=== PATIENT | male | born 1980 | race African-American/Black ===

== ENCOUNTER 2019-04-02 11:22 | Inpatient (IN) | payer OTHER | END 2019-04-06 13:28 | disposition other institution (70) | LOC: YASAS 11:22 → Y6N 19:05 ==

== ENCOUNTER 2019-04-06 13:37 | Inpatient (IN) | payer OTHER ==
[2019-04-06] MEDS ORDERED: MAGNESIUM CITRATE 300 ML BOTTLE PO PRN (15:29)
[2019-04-06] MEDS ORDERED: P-EPHED 60MG/TRIPROLIDI 2.5MG TABLET PO PRN (15:29)
[2019-04-06] MEDS ORDERED: LOPERAMIDE HCL 2 MG CAPSULE PO PRN (15:29)
[2019-04-06] MEDS ORDERED: guaiFENesin 200 MG/10 ML 10 ML UNIT-DOSE CUPS PO PRN (15:29)
[2019-04-06] MEDS ORDERED: MAGNESIUM HYDROX 2400MG/30ML ORAL SUSPENSION 30 ML CUP PO PRN (15:29)
[2019-04-06] MEDS ORDERED: MENTHOL/PHENOL 1 EACH UD MM PRN (15:29)
[2019-04-06] MEDS ORDERED: IBUPROFEN 400 MG TABLET (FP) PO PRN (15:29)
[2019-04-06] MEDS ORDERED: MAG HYDROX/AL HYDROX/SIMETH 30 ML UNIT-DOSE CUP PO PRN (15:29)
[2019-04-06] MEDS ORDERED: NICOTINE POLACRILEX 4 MG GUM BUC PRN (15:29)
[2019-04-06] MEDS ORDERED: hydrOXYzine PAMOATE 50 MG CAPSULE (FP) PO PRN (15:29)
--- NOTE | 2019-04-06 15:29 | HP ---
[facility] Rehab Assess/Revision - Admission History Admitted to Rehab from: [address] - Vital signs Vital Signs: Vital Signs Period Temp Pulse Resp BP Sys/Hancock Pulse Ox Last 24 Hr 98.3 F 83 18 120/68 - Findings Detox History & Physical reviewed: Yes Concur with findings: Yes Inpatient Rehab Admission - Rehab Decision to Admit Inpatient rehab admission?: Yes - Initial Determination Are CD services needed?: Yes Free of communicable disease: Yes Not in need of hospitalization: Yes - Rehab Admission Criteria Previous failed treatment: Yes Poor recovery environment: Yes Comorbidities: Yes Lacks judgement: Yes Patient is meeting Inpatient Rehab admission criteria:: Yes
[2019-04-06] MEDS: QUEtiapine FUMARATE 50 MG TABLET PO SCH (21:16)
[2019-04-06] MEDS: THIAMINE HCL 100 MG TABLET (FP) PO SCH (21:16)
[2019-04-06] MEDS ORDERED: MELATONIN 5 MG TABLETS PO PRN (22:00)
[2019-04-07] MEDS: PRENATAL VITAMINS W/ FOLIC ACID TABLET (FP) PO SCH (09:56)
[2019-04-07] MEDS: LISINOPRIL 5 MG TABLET (FP) PO SCH (09:56)
[2019-04-07] MEDS: PANTOPRAZOLE 40 MG TABLET (FP) PO SCH (09:56)
[2019-04-07] MEDS: ACETAMINOPHEN 325 MG TABLET (FP) PO PRN (09:57)
[2019-04-07] MEDS: NICOTINE 21 MG/24 HOURS TOPICAL PATCH TD SCH (09:58)
[2019-04-07] MEDS: THIAMINE HCL 100 MG TABLET (FP) PO SCH (21:33)
[2019-04-07] MEDS: QUEtiapine FUMARATE 50 MG TABLET PO SCH (21:33)
[2019-04-08] MEDS: LISINOPRIL 5 MG TABLET (FP) PO SCH (09:58)
[2019-04-08] MEDS: ACETAMINOPHEN 325 MG TABLET (FP) PO PRN (09:58)
[2019-04-08] MEDS: NICOTINE 21 MG/24 HOURS TOPICAL PATCH TD SCH (09:58)
[2019-04-08] MEDS: PANTOPRAZOLE 40 MG TABLET (FP) PO SCH (09:58)
[2019-04-08] MEDS: PRENATAL VITAMINS W/ FOLIC ACID TABLET (FP) PO SCH (09:58)
[2019-04-08] MEDS: QUEtiapine FUMARATE 50 MG TABLET PO SCH (21:34)
[2019-04-08] MEDS: THIAMINE HCL 100 MG TABLET (FP) PO SCH (21:34)
[2019-04-09] MEDS: LISINOPRIL 5 MG TABLET (FP) PO SCH (10:25)
[2019-04-09] MEDS: PANTOPRAZOLE 40 MG TABLET (FP) PO SCH (10:25)
[2019-04-09] MEDS: PRENATAL VITAMINS W/ FOLIC ACID TABLET (FP) PO SCH (10:25)
[2019-04-09] MEDS: NICOTINE 21 MG/24 HOURS TOPICAL PATCH TD SCH (10:26)
[2019-04-09] MEDS: THIAMINE HCL 100 MG TABLET (FP) PO SCH (21:58)
[2019-04-09] MEDS: QUEtiapine FUMARATE 50 MG TABLET PO SCH (21:58)
[2019-04-10] MEDS: LISINOPRIL 5 MG TABLET (FP) PO SCH (09:55)
[2019-04-10] MEDS: PANTOPRAZOLE 40 MG TABLET (FP) PO SCH (09:55)
[2019-04-10] MEDS: PRENATAL VITAMINS W/ FOLIC ACID TABLET (FP) PO SCH (09:55)
[2019-04-10] MEDS: NICOTINE 21 MG/24 HOURS TOPICAL PATCH TD SCH (09:56)
[2019-04-10 12:36] VITALS: BP 114/64; PULSE 80; TEMP 97.8
--- NOTE | 2019-04-10 23:47 | PN ---
[facility] Progress Note Note: Patient was admitted to rehab post detox from opioids and anxiolytics. Patient w/ co-occurring cocaine use disorder. Patient states must leave, despite reviewe of benefits and encouragement to remain. Vital Signs - 24 hr 04/10/19 04/10/19 04/10/19 03:30 06:47 12:35 Temperature 98.3 F 97.8 F Pulse Rate 73 80 Respiratory 18 18 18 Rate Blood Pressure 91/62 114/64 Laboratory Last Values HIV 1&2 Antibody Screen Negative 04/07/19 07:00 HIV P24 Antigen Negative 04/07/19 07:00 Labs reviewed. Loss of tolerance and overdose risks discussed. Reviewed the benefits of having a Narcan Kit at home but patient refuses prescription. Patient states will rejoin support network "Ready[employer] Willing, [employer]ble' in a.m. Patient left AMA.
== END 2019-04-10 17:30 | disposition left against medical advice (07) | DRG 770 ==
LOC: YASAS 13:37 → Y3W 13:38
PROVIDERS: ADMIT Neuromusculoskeletal Medicine & OMM; ATTEND Neuromusculoskeletal Medicine & OMM
PROC: HZ42ZZZ Group Counseling for Substance Abuse Treatment, Cognitive-Behavioral (ICD-10-PCS; principal; 2019-04-06)
DX: F11.20 Opioid dependence, uncomplicated (principal); F14.20 Cocaine dependence, uncomplicated; F13.90 Sedative, hypnotic, or anxiolytic use, unspecified, uncomplicated; F17.210 Nicotine dependence, cigarettes, uncomplicated; I10 Essential (primary) hypertension; G47.00 Insomnia, unspecified; K21.9 Gastro-esophageal reflux disease without esophagitis; Z59.0 Homelessness
CPT/HCPCS: 36415; 87389

== ENCOUNTER 2022-02-24 11:01 | Inpatient (IN) | payer OTHER ==
[2022-02-24] MEDS ORDERED: methaDONE HCL 10 MG TABLET (FOR DETOX USE ONLY) PO ONE ×2 (11:53→23:00)
[2022-02-24] MEDS ORDERED: cloNIDine HCL 0.1 MG TABLET PO PRN (11:53)
[2022-02-24] MEDS ORDERED: BENZOCAINE/MENTHOL (CHLORASEPTIC ) LOZENGE MM PRN (11:53)
[2022-02-24] MEDS ORDERED: NICOTINE 10 MG CARTRIDGE (INHALER) IH PRN (11:53)
[2022-02-24] MEDS ORDERED: ACETAMINOPHEN 325 MG TABLET (FP) PO PRN ×2 (11:53)
[2022-02-24] MEDS ORDERED: DICYCLOMINE HCL 10 MG CAPSULE PO PRN (11:53)
[2022-02-24] MEDS ORDERED: IBUPROFEN 400 MG TABLET (FP) PO PRN (11:53)
[2022-02-24] MEDS ORDERED: MAGNESIUM HYDROX 2400MG/30ML ORAL SUSPENSION 30 ML CUP PO PRN (11:53)
[2022-02-24] MEDS ORDERED: MAG HYDROX/AL HYDROX/SIMETH 30 ML UNIT-DOSE CUP PO PRN (11:53)
[2022-02-24] MEDS ORDERED: MAGNESIUM CITRATE 300 ML BOTTLE PO PRN (11:53)
[2022-02-24] MEDS ORDERED: BISMUTH SUBSALICYLATE 262 MG/15 ML BTL PO PRN (11:53)
[2022-02-24] MEDS ORDERED: LOPERAMIDE HCL 2 MG CAPSULE PO PRN (11:53)
[2022-02-24] MEDS ORDERED: ONDANSETRON *ODT* 4 MG TABLET SL PRN (11:53)
[2022-02-24 12:41] VITALS: BMI 30.2
[2022-02-24] MEDS: hydrOXYzine PAMOATE 25 MG CAPSULE (FP) PO SCH ×3 (13:13→22:49)
[2022-02-24] MEDS: PRENATAL VITAMINS W/ FOLIC ACID TABLET (FP) PO SCH (13:13)
[2022-02-24] MEDS: NICOTINE 7 MG/24 HOURS TOPICAL PATCH TD SCH (13:13)
[2022-02-24] MEDS: VITAMINS A AND D TOPICAL OINTMENT 60 GM TUBE TP SCH ×3 (13:13→23:02)
[2022-02-24 15:54] LABS: HEMATOCRIT 37.9 % (35.4-49); HEMOGLOBIN 12.7 GM/dL (11.7-16.9); MCH 28.1 pg (25.7-33.7); MCHC 33.4 g/dl (32.0-35.9); MEAN CELL VOLUME 84.1 fl (80-96); MEAN PLT VOLUME 10.5 fl (7.5-11.1); PLATELET COUNT 146 10^3/uL (134-434); RDW 14.3 % (11.9-15.9); WHITE BLOOD COUNT 4.9 K/mm3 (4.0-10.0)
[2022-02-24 16:38] LABS: CALCIUM 8.9 mg/dL (8.5-10.1)
[2022-02-24 16:39] LABS: ALBUMIN 3.8 g/dl (3.4-5.0); BLOOD UREA NITROGEN 11.7 mg/dL (7-18)
[2022-02-24 16:42] LABS: CREATININE 0.9 mg/dL (0.55-1.3)
[2022-02-24 16:43] LABS: TOT PROT 6.6 g/dl (6.4-8.2)
[2022-02-24 16:44] LABS: BILIRUBIN,TOTAL 0.3 mg/dL (0.2-1)
[2022-02-24] MEDS: METHOCARBAMOL 500 MG TABLET PO PRN (17:39)
[2022-02-24] MEDS: THIAMINE HCL 100 MG TABLET (FP) PO SCH (22:45)
[2022-02-24] MEDS: BACITRACIN 0.9 GM PACKET TP SCH (22:45)
[2022-02-24] MEDS: MELATONIN 5 MG TABLETS PO SCH (22:49)
[2022-02-25] MEDS: hydrOXYzine PAMOATE 25 MG CAPSULE (FP) PO SCH ×5 (05:10→22:02)
[2022-02-25] MEDS: VITAMINS A AND D TOPICAL OINTMENT 60 GM TUBE TP SCH ×4 (05:11→23:03)
[2022-02-25] MEDS ORDERED: methaDONE HCL 10 MG TABLET (FOR DETOX USE ONLY) ONE (09:11)
[2022-02-25] MEDS: NICOTINE 7 MG/24 HOURS TOPICAL PATCH TD SCH (10:41)
[2022-02-25] MEDS: BACITRACIN 0.9 GM PACKET TP SCH ×2 (10:41→22:00)
[2022-02-25] MEDS: METHOCARBAMOL 500 MG TABLET PO PRN (10:41)
[2022-02-25] MEDS: PRENATAL VITAMINS W/ FOLIC ACID TABLET (FP) PO SCH (10:41)
[2022-02-25] MEDS: THIAMINE HCL 100 MG TABLET (FP) PO SCH (22:00)
[2022-02-25] MEDS: traZODone HCL 100 MG TABLET (FP) PO SCH (22:00)
[2022-02-25] MEDS: MELATONIN 5 MG TABLETS PO SCH (22:01)
[2022-02-26] MEDS: hydrOXYzine PAMOATE 25 MG CAPSULE (FP) PO SCH ×6 (05:44→22:34)
[2022-02-26] MEDS: VITAMINS A AND D TOPICAL OINTMENT 60 GM TUBE TP SCH ×4 (05:44→23:32)
[2022-02-26] MEDS ORDERED: methaDONE HCL 10 MG TABLET (FOR DETOX USE ONLY) PO ONE (10:00)
[2022-02-26] MEDS: PRENATAL VITAMINS W/ FOLIC ACID TABLET (FP) PO SCH (10:32)
[2022-02-26] MEDS: METHOCARBAMOL 500 MG TABLET PO PRN (10:32)
[2022-02-26] MEDS: BACITRACIN 0.9 GM PACKET TP SCH ×2 (10:32→22:33)
[2022-02-26] MEDS: NICOTINE 7 MG/24 HOURS TOPICAL PATCH TD SCH (10:33)
[2022-02-26 16:10] LABS: SARS-CoV-2 NAA Not Detected (Not Detected)
[2022-02-26] MEDS: traZODone HCL 100 MG TABLET (FP) PO SCH (22:33)
[2022-02-26] MEDS: THIAMINE HCL 100 MG TABLET (FP) PO SCH (22:33)
[2022-02-26] MEDS: MELATONIN 5 MG TABLETS PO SCH (22:33)
[2022-02-27] MEDS: VITAMINS A AND D TOPICAL OINTMENT 60 GM TUBE TP SCH ×3 (07:20→19:58)
[2022-02-27] MEDS: hydrOXYzine PAMOATE 25 MG CAPSULE (FP) PO SCH ×5 (07:20→22:53)
[2022-02-27] MEDS ORDERED: methaDONE HCL 10 MG TABLET (FOR DETOX USE ONLY) ONE (09:32)
[2022-02-27] MEDS: PRENATAL VITAMINS W/ FOLIC ACID TABLET (FP) PO SCH (10:22)
[2022-02-27] MEDS: BACITRACIN 0.9 GM PACKET TP SCH ×2 (10:22→22:54)
[2022-02-27] MEDS: METHOCARBAMOL 500 MG TABLET PO PRN (10:22)
[2022-02-27] MEDS: NICOTINE 7 MG/24 HOURS TOPICAL PATCH TD SCH (10:23)
[2022-02-27] MEDS: MELATONIN 5 MG TABLETS PO SCH (22:53)
[2022-02-27] MEDS: THIAMINE HCL 100 MG TABLET (FP) PO SCH (22:53)
[2022-02-27] MEDS: traZODone HCL 100 MG TABLET (FP) PO SCH (22:53)
[2022-02-28] MEDS: VITAMINS A AND D TOPICAL OINTMENT 60 GM TUBE TP SCH ×4 (00:40→23:52)
[2022-02-28] MEDS: hydrOXYzine PAMOATE 25 MG CAPSULE (FP) PO SCH ×5 (05:41→22:10)
[2022-02-28] MEDS ORDERED: methaDONE HCL 10 MG TABLET (FOR DETOX USE ONLY) PO ONE (10:00)
[2022-02-28] MEDS: BACITRACIN 0.9 GM PACKET TP SCH ×2 (10:43→22:10)
[2022-02-28] MEDS: NICOTINE 7 MG/24 HOURS TOPICAL PATCH TD SCH (10:43)
[2022-02-28] MEDS: PRENATAL VITAMINS W/ FOLIC ACID TABLET (FP) PO SCH (10:43)
[2022-02-28] MEDS: traZODone HCL 100 MG TABLET (FP) PO SCH (22:10)
[2022-02-28] MEDS: THIAMINE HCL 100 MG TABLET (FP) PO SCH (22:10)
[2022-02-28] MEDS: MELATONIN 5 MG TABLETS PO SCH (22:11)
[2022-03-01] MEDS: VITAMINS A AND D TOPICAL OINTMENT 60 GM TUBE TP SCH ×2 (00:30→06:12)
[2022-03-01] MEDS: hydrOXYzine PAMOATE 25 MG CAPSULE (FP) PO SCH ×2 (06:12→09:06)
[2022-03-01] MEDS: PRENATAL VITAMINS W/ FOLIC ACID TABLET (FP) PO SCH (09:05)
[2022-03-01] MEDS: BACITRACIN 0.9 GM PACKET TP SCH (09:05)
[2022-03-01] MEDS: NICOTINE 7 MG/24 HOURS TOPICAL PATCH TD SCH (09:06)
[2022-03-01 09:24] VITALS: BP 126/88; PULSE 79; TEMP 97.3
== END 2022-03-01 09:21 | disposition home or self-care (01) | DRG 773 ==
LOC: YASAS 11:01 → Y6N 12:10
PROVIDERS: ADMIT Allergy & Immunology; ATTEND Surgery
PROC: HZ2ZZZZ Detoxification Services for Substance Abuse Treatment (ICD-10-PCS; principal; 2022-02-24)
DX: F11.23 Opioid dependence with withdrawal (principal); F14.20 Cocaine dependence, uncomplicated; F13.10 Sedative, hypnotic or anxiolytic abuse, uncomplicated; F17.213 Nicotine dependence, cigarettes, with withdrawal; F19.282 Other psychoactive substance dependence with psychoactive substance-induced sleep disorder; F90.9 Attention-deficit hyperactivity disorder, unspecified type; G47.00 Insomnia, unspecified; I10 Essential (primary) hypertension; Z59.01 Sheltered homelessness
CPT/HCPCS: 36415; 80053; 85027; 86780; 87811; 93005; 93010; C9803-CS; J0735; U0003; U0005

== ENCOUNTER 2022-10-30 08:45 | Inpatient (IN) | payer OTHER ==
[2022-10-30 09:37] VITALS: BMI 31.7
[2022-10-30] MEDS ORDERED: MAGNESIUM HYDROX 2400MG/30ML ORAL SUSPENSION 30 ML CUP PO PRN (09:54)
[2022-10-30] MEDS ORDERED: hydrOXYzine PAMOATE 25 MG CAPSULE (FP) PO PRN (09:54)
[2022-10-30] MEDS ORDERED: BENZOCAINE/MENTHOL (CHLORASEPTIC ) LOZENGE MM PRN (09:54)
[2022-10-30] MEDS ORDERED: NALOXONE HCL (KLOXXADO) 8 MG SPRAY NS PRN (09:54)
[2022-10-30] MEDS ORDERED: NICOTINE 10 MG CARTRIDGE (INHALER) IH PRN (09:54)
[2022-10-30] MEDS ORDERED: MAG HYDROX/AL HYDROX/SIMETH 30 ML UNIT-DOSE CUP PO PRN (09:54)
[2022-10-30] MEDS ORDERED: POLYETHYLENE GLYCOL (HEALTHYLAX) 3350 17 GM PACKET PO PRN (09:54)
[2022-10-30] MEDS ORDERED: IBUPROFEN 400 MG TABLET (FP) PO PRN (09:54)
[2022-10-30] MEDS ORDERED: ONDANSETRON *ODT* 4 MG TABLET SL PRN (09:54)
[2022-10-30] MEDS ORDERED: chlordiazePOXIDE HCL 25 MG CAPSULE PO PRN (09:54)
[2022-10-30] MEDS ORDERED: cloNIDine HCL 0.1 MG TABLET PO PRN (09:54)
[2022-10-30] MEDS ORDERED: DICYCLOMINE HCL 10 MG CAPSULE PO PRN (09:54)
[2022-10-30] MEDS ORDERED: ACETAMINOPHEN 325 MG TABLET (FP) PO PRN ×2 (09:54)
[2022-10-30] MEDS ORDERED: LOPERAMIDE HCL 2 MG CAPSULE PO PRN (09:54)
[2022-10-30] MEDS ORDERED: BISMUTH SUBSALICYLATE 524 MG/30 ML PO PRN (09:54)
[2022-10-30] MEDS ORDERED: IBUPROFEN 600 MG TABLET (FP) PO PRN (09:54)
[2022-10-30] MEDS ORDERED: methaDONE HCL 10 MG TABLET (FOR DETOX USE ONLY) PO ONE (10:15)
[2022-10-30] MEDS ORDERED: chlordiazePOXIDE HCL 25 MG CAPSULE PO ONE (10:30)
[2022-10-30] MEDS: PRENATAL VITAMINS W/ FOLIC ACID TABLET (FP) PO SCH (10:58)
[2022-10-30] MEDS: NICOTINE 7 MG/24 HOURS TOPICAL PATCH TD SCH (11:03)
[2022-10-30] MEDS: chlordiazePOXIDE HCL 25 MG CAPSULE PO SCH ×2 (17:24→22:17)
[2022-10-30] MEDS: THIAMINE HCL 100 MG TABLET (FP) PO SCH (22:16)
[2022-10-30] MEDS: MELATONIN 5 MG TABLETS PO SCH (22:16)
[2022-10-30] MEDS: METHOCARBAMOL 500 MG TABLET PO PRN (22:16)
[2022-10-31] MEDS: chlordiazePOXIDE HCL 25 MG CAPSULE PO SCH ×4 (05:58→22:00)
[2022-10-31] MEDS: PRENATAL VITAMINS W/ FOLIC ACID TABLET (FP) PO SCH (10:20)
[2022-10-31] MEDS: NICOTINE 7 MG/24 HOURS TOPICAL PATCH TD SCH (10:21)
[2022-10-31] MEDS: THIAMINE HCL 100 MG TABLET (FP) PO SCH (21:48)
[2022-10-31] MEDS: METHOCARBAMOL 500 MG TABLET PO PRN (21:48)
[2022-10-31] MEDS: MELATONIN 5 MG TABLETS PO SCH (21:49)
[2022-11-01] MEDS: chlordiazePOXIDE HCL 25 MG CAPSULE PO SCH ×4 (05:40→22:04)
[2022-11-01] MEDS ORDERED: methaDONE HCL 10 MG TABLET (FOR DETOX USE ONLY) PO ONE (10:00)
[2022-11-01] MEDS: NICOTINE 7 MG/24 HOURS TOPICAL PATCH TD SCH (10:03)
[2022-11-01] MEDS: PRENATAL VITAMINS W/ FOLIC ACID TABLET (FP) PO SCH (10:03)
[2022-11-01] MEDS: MELATONIN 5 MG TABLETS PO SCH (22:05)
[2022-11-01] MEDS: THIAMINE HCL 100 MG TABLET (FP) PO SCH (22:05)
[2022-11-01] MEDS: METHOCARBAMOL 500 MG TABLET PO PRN (22:06)
[2022-11-02] MEDS ORDERED: chlordiazePOXIDE HCL 10 MG CAPSULE PO PRN
[2022-11-02] MEDS: chlordiazePOXIDE HCL 10 MG CAPSULE PO SCH ×2 (05:43→10:12)
[2022-11-02 09:30] VITALS: RESP 18
[2022-11-02] MEDS: PRENATAL VITAMINS W/ FOLIC ACID TABLET (FP) PO SCH (10:12)
[2022-11-02] MEDS: NICOTINE 7 MG/24 HOURS TOPICAL PATCH TD SCH (10:14)
[2022-11-02 13:14] VITALS: BP 113/75; PULSE 75; TEMP 97.3
[2022-11-02 15:57] LABS: CALCIUM 8.8 mg/dL (8.5-10.1)
[2022-11-02 15:58] LABS: ALBUMIN 2.8 g/dl (3.4-5.0); BLOOD UREA NITROGEN 19.4 mg/dL (7-18)
[2022-11-02 16:01] LABS: CREATININE 0.9 mg/dL (0.55-1.3)
[2022-11-02 16:04] LABS: BILIRUBIN,TOTAL 0.4 mg/dL (0.2-1); TOT PROT 5.9 g/dl (6.4-8.2)
[2022-11-02 16:10] LABS: HEMATOCRIT 36.8 % (35.4-49); HEMOGLOBIN 12.1 GM/dL (11.7-16.9); MCH 27.4 pg (25.7-33.7); MCHC 32.8 g/dl (32.0-35.9); MEAN CELL VOLUME 83.5 fl (80-96); PLATELET COUNT 143 10^3/uL (134-434); RBC 4.41 M/mm3 (4.00-5.60)
[2022-11-03] MEDS ORDERED: chlordiazePOXIDE HCL 10 MG CAPSULE PO SCH (05:00)
[2022-11-03] MEDS ORDERED: methaDONE HCL 10 MG TABLET (FOR DETOX USE ONLY) PO ONE (10:00)
[2022-11-04] MEDS ORDERED: chlordiazePOXIDE HCL 10 MG CAPSULE PO ONE (05:00)
== END 2022-11-02 14:24 | disposition left against medical advice (07) | DRG 770 ==
LOC: YASAS 08:45 → Y3N 10:11
PROVIDERS: ADMIT Allergy & Immunology; ATTEND Family Medicine
PROC: HZ2ZZZZ Detoxification Services for Substance Abuse Treatment (ICD-10-PCS; principal; 2022-10-30)
DX: F11.23 Opioid dependence with withdrawal (principal); F10.230 Alcohol dependence with withdrawal, uncomplicated; F14.20 Cocaine dependence, uncomplicated; F12.20 Cannabis dependence, uncomplicated; F17.213 Nicotine dependence, cigarettes, with withdrawal; F41.9 Anxiety disorder, unspecified; F90.9 Attention-deficit hyperactivity disorder, unspecified type; I10 Essential (primary) hypertension; K21.9 Gastro-esophageal reflux disease without esophagitis; Z59.02 Unsheltered homelessness
CPT/HCPCS: 36415; 80053; 82140; 85027; 86780; C9803-CS; U0003; U0005

== ENCOUNTER 2023-09-20 09:38 | Inpatient (IN) | payer OTHER ==
[2023-09-20 10:05] VITALS: BMI 35.1
[2023-09-20] MEDS ORDERED: DICYCLOMINE HCL 10 MG CAPSULE PO PRN (14:09)
[2023-09-20] MEDS ORDERED: BENZOCAINE/MENTHOL (CHLORASEPTIC ) LOZENGE MM PRN (14:09)
[2023-09-20] MEDS ORDERED: MAGNESIUM HYDROX 2400MG/30ML ORAL SUSPENSION 30 ML CUP PO PRN (14:09)
[2023-09-20] MEDS ORDERED: NALOXONE HCL (KLOXXADO) 8 MG SPRAY NS PRN (14:09)
[2023-09-20] MEDS ORDERED: NALOXONE HCL 0.4 MG/ML VIAL IM PRN (14:09)
[2023-09-20] MEDS ORDERED: LOPERAMIDE HCL 2 MG CAPSULE PO PRN (14:09)
[2023-09-20] MEDS ORDERED: BISMUTH SUBSALICYLATE 524 MG/30 ML PO PRN (14:09)
[2023-09-20] MEDS ORDERED: MAG HYDROX/AL HYDROX/SIMETH 30 ML UNIT-DOSE CUP PO PRN (14:09)
[2023-09-20] MEDS ORDERED: ONDANSETRON *ODT* 4 MG TABLET SL PRN (14:09)
[2023-09-20] MEDS ORDERED: POLYETHYLENE GLYCOL (HEALTHYLAX) 3350 17 GM PACKET PO PRN (14:09)
[2023-09-20] MEDS ORDERED: IBUPROFEN 400 MG TABLET (FP) PO PRN (14:09)
[2023-09-20] MEDS ORDERED: ACETAMINOPHEN 325 MG TABLET (FP) PO PRN (14:09)
[2023-09-20] MEDS ORDERED: BENZONATATE 200 MG CAPSULE PO PRN (14:09)
[2023-09-20] MEDS ORDERED: guaiFENesin 600 MG TABLET.ER (FP) PO PRN (14:09)
[2023-09-20] MEDS ORDERED: IBUPROFEN 600 MG TABLET (FP) PO PRN (14:09)
[2023-09-20] MEDS ORDERED: NICOTINE POLACRILEX 2 MG GUM BUC PRN (14:16)
[2023-09-20] MEDS: hydrOXYzine PAMOATE 25 MG CAPSULE (FP) PO PRN (22:19)
[2023-09-20] MEDS: METHOCARBAMOL 500 MG TABLET PO PRN (22:19)
[2023-09-20] MEDS: MELATONIN 5 MG TABLETS PO SCH (22:19)
[2023-09-20] MEDS: THIAMINE HCL 100 MG TABLET (FP) PO SCH (22:19)
[2023-09-20] MEDS: MUPIROCIN 2% TOPICAL OINTMENT 22 GM TUBE TP SCH (22:20)
[2023-09-21 10:32] LABS: HEMATOCRIT 39.4 % (35.4-49); HEMOGLOBIN 13.4 GM/dL (11.7-16.9); MCH 27.7 pg (25.7-33.7); MEAN CELL VOLUME 81.6 fl (80-96); PLATELET COUNT 177 10^3/uL (134-434); RBC 4.83 M/mm3 (4.00-5.60); RDW 14.8 % (11.9-15.9); WHITE BLOOD COUNT 3.1 K/mm3 (4.0-10.0)
[2023-09-21] MEDS: PRENATAL VITAMINS W/ FOLIC ACID TABLET (FP) PO SCH (10:42)
[2023-09-21] MEDS: NICOTINE 14 MG/24 HOURS TOPICAL PATCH TD SCH (10:43)
[2023-09-21] MEDS ORDERED: chlordiazePOXIDE HCL 25 MG CAPSULE PO PRN (10:44)
[2023-09-21] MEDS: chlordiazePOXIDE HCL 25 MG CAPSULE PO ONE (12:53)
[2023-09-21] MEDS: chlordiazePOXIDE HCL 25 MG CAPSULE PO SCH (12:57)
[2023-09-21 13:06] LABS: CHLORIDE 107 mmol/L (98-107); SODIUM 142 mmol/L (136-145)
[2023-09-21 13:08] LABS: ALBUMIN 2.9 g/dl (3.4-5.0); ANION GAP 5 mmol/L (4-13); BLOOD UREA NITROGEN 14.8 mg/dL (7-18); CALCIUM 8.4 mg/dL (8.5-10.1); CO2 30 mmol/L (21-32); GLUCOSE,RANDOM 98 mg/dL (74-106)
[2023-09-21 13:11] LABS: CREATININE 0.8 mg/dL (0.55-1.3); SGOT/AST 41 U/L (15-37); SGPT/ALT 61 U/L (13-61)
[2023-09-21 13:13] LABS: BILIRUBIN,TOTAL 0.3 mg/dL (0.2-1); TOT PROT 5.8 g/dl (6.4-8.2)
[2023-09-21 13:14] LABS: ALK PHOS 54 U/L (45-117)
[2023-09-21 13:16] LABS: HIV INTERPRETATION NEGATIVE (NEGATIVE)
[2023-09-21] MEDS: FLU VACCINE (FLULAVAL) PF 60 MCG/0.5 ML SYRINGE 2023-2024 IM ONE (14:55)
[2023-09-21] MEDS: traZODone HCL 100 MG TABLET (FP) PO SCH (22:53)
[2023-09-23] MEDS: chlordiazePOXIDE HCL 25 MG CAPSULE PO SCH (05:55)
[2023-09-24] MEDS ORDERED: chlordiazePOXIDE HCL 10 MG CAPSULE PO PRN
[2023-09-24] MEDS: chlordiazePOXIDE HCL 10 MG CAPSULE PO SCH (06:00)
[2023-09-25] MEDS: chlordiazePOXIDE HCL 10 MG CAPSULE PO SCH (05:50)
[2023-09-26] MEDS: chlordiazePOXIDE HCL 10 MG CAPSULE PO ONE (05:50)
[2023-09-26 09:06] VITALS: BP 102/60; PULSE 74; RESP 18; TEMP 97.7
== END 2023-09-26 11:52 | disposition home or self-care (01) | DRG 773 ==
LOC: YASAS 09:38 → Y3N 15:02
PROVIDERS: ADMIT Allergy & Immunology; ATTEND Surgery
PROC: HZ2ZZZZ Detoxification Services for Substance Abuse Treatment (ICD-10-PCS; principal; 2023-09-20)
DX: F10.230 Alcohol dependence with withdrawal, uncomplicated (principal); F11.20 Opioid dependence, uncomplicated; F13.230 Sedative, hypnotic or anxiolytic dependence with withdrawal, uncomplicated; F14.20 Cocaine dependence, uncomplicated; F17.210 Nicotine dependence, cigarettes, uncomplicated; F41.9 Anxiety disorder, unspecified; F90.9 Attention-deficit hyperactivity disorder, unspecified type; F19.982 Other psychoactive substance use, unspecified with psychoactive substance-induced sleep disorder; I10 Essential (primary) hypertension; K21.9 Gastro-esophageal reflux disease without esophagitis; G47.00 Insomnia, unspecified; E66.9 Obesity, unspecified; Z68.35 Body mass index [BMI] 35.0-35.9, adult; Z20.822 Contact with and (suspected) exposure to COVID-19; Z56.0 Unemployment, unspecified; Z59.00 Homelessness unspecified
CPT/HCPCS: 36415; 80053; 80307; 85027; 86780; 87389; 87635; 87811; 90686; 93005; 93010; G0008

== ENCOUNTER 2023-11-18 15:39 | Inpatient (IN) | payer OTHER ==
[2023-11-18 17:10] VITALS: BMI 31.7
[2023-11-18] MEDS ORDERED: BENZONATATE 200 MG CAPSULE PO PRN (20:37)
[2023-11-18] MEDS ORDERED: IBUPROFEN 600 MG TABLET (FP) PO PRN (20:37)
[2023-11-18] MEDS ORDERED: MAG HYDROX/AL HYDROX/SIMETH 30 ML UNIT-DOSE CUP PO PRN (20:37)
[2023-11-18] MEDS ORDERED: ONDANSETRON *ODT* 4 MG TABLET SL PRN (20:37)
[2023-11-18] MEDS ORDERED: ACETAMINOPHEN 325 MG TABLET (FP) PO PRN (20:37)
[2023-11-18] MEDS ORDERED: guaiFENesin 600 MG TABLET.ER (FP) PO PRN (20:37)
[2023-11-18] MEDS ORDERED: BENZOCAINE/MENTHOL (CHLORASEPTIC ) LOZENGE MM PRN (20:37)
[2023-11-18] MEDS ORDERED: LOPERAMIDE HCL 2 MG CAPSULE PO PRN (20:37)
[2023-11-18] MEDS ORDERED: DICYCLOMINE HCL 10 MG CAPSULE PO PRN (20:37)
[2023-11-18] MEDS ORDERED: NICOTINE POLACRILEX 2 MG LOZENGE BC PRN (20:37)
[2023-11-18] MEDS ORDERED: NALOXONE HCL (KLOXXADO) 8 MG SPRAY NS PRN (20:37)
[2023-11-18] MEDS ORDERED: MAGNESIUM HYDROX 2400MG/30ML ORAL SUSPENSION 30 ML CUP PO PRN (20:37)
[2023-11-18] MEDS ORDERED: BISMUTH SUBSALICYLATE 524 MG/30 ML PO PRN (20:37)
[2023-11-18] MEDS ORDERED: POLYETHYLENE GLYCOL (HEALTHYLAX) 3350 17 GM PACKET PO PRN (20:37)
[2023-11-18] MEDS ORDERED: NALOXONE HCL 0.4 MG/ML VIAL IM PRN (20:37)
[2023-11-18] MEDS ORDERED: IBUPROFEN 400 MG TABLET (FP) PO ONE (20:53)
[2023-11-18] MEDS: IBUPROFEN 400 MG TABLET (FP) PO PRN (20:54)
[2023-11-19] MEDS: THIAMINE HCL 100 MG TABLET (FP) PO SCH (00:20)
[2023-11-19] MEDS: MELATONIN 5 MG TABLETS PO SCH (00:20)
[2023-11-19] MEDS: NICOTINE 14 MG/24 HOURS TOPICAL PATCH TD SCH (10:16)
[2023-11-19] MEDS: PRENATAL VITAMINS W/ FOLIC ACID TABLET (FP) PO SCH (10:16)
[2023-11-19 10:34] LABS: CHLORIDE 108 mmol/L (98-107); HEMATOCRIT 44.6 % (35.4-49); HEMOGLOBIN 15.1 GM/dL (11.7-16.9); MCH 28.1 pg (25.7-33.7); MCHC 33.8 g/dl (32.0-35.9); MEAN CELL VOLUME 83.2 fl (80-96); MEAN PLT VOLUME 10.4 fl (7.5-11.1); PLATELET COUNT 142 10^3/uL (134-434); POTASSIUM 3.7 mmol/L (3.5-5.1); RBC 5.37 M/mm3 (4.00-5.60); RDW 15.1 % (11.9-15.9); SODIUM 142 mmol/L (136-145); WHITE BLOOD COUNT 3.2 K/mm3 (4.0-10.0)
[2023-11-19 10:37] LABS: CALCIUM 9.2 mg/dL (8.5-10.1)
[2023-11-19 10:38] LABS: ALBUMIN 3.5 g/dl (3.4-5.0); ANION GAP 6 mmol/L (4-13); CO2 29 mmol/L (21-32); GLUCOSE,RANDOM 164 mg/dL (74-106)
[2023-11-19 10:40] LABS: SGPT/ALT 37 U/L (13-61)
[2023-11-19 10:41] LABS: SGOT/AST 31 U/L (15-37)
[2023-11-19 10:42] LABS: BILIRUBIN,TOTAL 0.3 mg/dL (0.2-1); TOT PROT 6.6 g/dl (6.4-8.2)
[2023-11-19 10:43] LABS: ALK PHOS 58 U/L (45-117)
[2023-11-19] MEDS ORDERED: diazePAM 5 MG TABLET PO PRN (10:47)
[2023-11-19] MEDS: PANTOPRAZOLE 20 MG TABLET PO SCH (11:01)
[2023-11-19] MEDS: diazePAM 5 MG TABLET PO SCH (11:01)
[2023-11-19] MEDS: traZODone HCL 100 MG TABLET (FP) PO SCH (22:40)
[2023-11-20] MEDS: hydrOXYzine PAMOATE 25 MG CAPSULE (FP) PO PRN (10:46)
[2023-11-21] MEDS: diazePAM 5 MG TABLET PO SCH (06:12)
[2023-11-22] MEDS: diazePAM 5 MG TABLET PO SCH (05:52)
[2023-11-23] MEDS: diazePAM 5 MG TABLET PO ONE (05:56)
[2023-11-23 10:54] VITALS: BP 115/80; PULSE 88; RESP 18; TEMP 98
== END 2023-11-23 13:43 | disposition home or self-care (01) | DRG 773 ==
LOC: YASAS 15:39 → Y6N 23:42
PROVIDERS: ADMIT Allergy & Immunology; ATTEND Surgery
PROC: HZ2ZZZZ Detoxification Services for Substance Abuse Treatment (ICD-10-PCS; principal; 2023-11-18)
DX: F10.230 Alcohol dependence with withdrawal, uncomplicated (principal); F11.20 Opioid dependence, uncomplicated; F14.20 Cocaine dependence, uncomplicated; F17.210 Nicotine dependence, cigarettes, uncomplicated; F19.282 Other psychoactive substance dependence with psychoactive substance-induced sleep disorder; F19.24 Other psychoactive substance dependence with psychoactive substance-induced mood disorder; F32.A Depression, unspecified; K21.9 Gastro-esophageal reflux disease without esophagitis; E66.09 Other obesity due to excess calories; Z68.31 Body mass index [BMI] 31.0-31.9, adult; Z59.00 Homelessness unspecified
CPT/HCPCS: 36415; 80053; 80307; 83036; 85027; 86780; 87635; 87811

== ENCOUNTER 2024-01-16 13:41 | Inpatient (IN) | payer OTHER ==
[2024-01-16 14:15] VITALS: BMI 35.4
[2024-01-16] MEDS ORDERED: LOPERAMIDE HCL 2 MG CAPSULE PO PRN (15:56)
[2024-01-16] MEDS ORDERED: IBUPROFEN 600 MG TABLET (FP) PO PRN (15:56)
[2024-01-16] MEDS ORDERED: NALOXONE HCL 0.4 MG/ML VIAL IM PRN (15:56)
[2024-01-16] MEDS ORDERED: BENZONATATE 200 MG CAPSULE PO PRN (15:56)
[2024-01-16] MEDS ORDERED: ACETAMINOPHEN 325 MG TABLET (FP) PO PRN (15:56)
[2024-01-16] MEDS ORDERED: DICYCLOMINE HCL 10 MG CAPSULE PO PRN (15:56)
[2024-01-16] MEDS ORDERED: ONDANSETRON *ODT* 4 MG TABLET SL PRN (15:56)
[2024-01-16] MEDS ORDERED: NALOXONE HCL (KLOXXADO) 8 MG SPRAY NS PRN (15:56)
[2024-01-16] MEDS ORDERED: guaiFENesin 600 MG TABLET.ER (FP) PO PRN (15:56)
[2024-01-16] MEDS ORDERED: MAG HYDROX/AL HYDROX/SIMETH 30 ML UNIT-DOSE CUP PO PRN (15:56)
[2024-01-16] MEDS ORDERED: chlordiazePOXIDE HCL 25 MG CAPSULE PO PRN (15:56)
[2024-01-16] MEDS ORDERED: BISMUTH SUBSALICYLATE 524 MG/30 ML PO PRN (15:56)
[2024-01-16] MEDS ORDERED: BENZOCAINE/MENTHOL (CHLORASEPTIC ) LOZENGE MM PRN (15:56)
[2024-01-16] MEDS ORDERED: POLYETHYLENE GLYCOL (HEALTHYLAX) 3350 17 GM PACKET PO PRN (15:56)
[2024-01-16] MEDS ORDERED: MAGNESIUM HYDROX 2400MG/30ML ORAL SUSPENSION 30 ML CUP PO PRN (15:56)
[2024-01-16] MEDS: chlordiazePOXIDE HCL 25 MG CAPSULE PO SCH (17:36)
[2024-01-16] MEDS: MELATONIN 5 MG TABLETS PO SCH (22:17)
[2024-01-16] MEDS: THIAMINE HCL 100 MG TABLET (FP) PO SCH (22:17)
[2024-01-17] MEDS: METHOCARBAMOL 500 MG TABLET PO PRN (05:52)
[2024-01-17] MEDS: FAMOTIDINE 20 MG TABLET PO SCH (10:32)
[2024-01-17] MEDS: PRENATAL VITAMINS W/ FOLIC ACID TABLET (FP) PO SCH (10:32)
[2024-01-17] MEDS: IBUPROFEN 400 MG TABLET (FP) PO PRN (10:33)
[2024-01-17 12:02] LABS: HEMATOCRIT 41.6 % (35.4-49); HEMOGLOBIN 13.5 GM/dL (11.7-16.9); MCH 27.1 pg (25.7-33.7); MCHC 32.5 g/dl (32.0-35.9); MEAN CELL VOLUME 83.3 fl (80-96); MEAN PLT VOLUME 10.6 fl (7.5-11.1); PLATELET COUNT 137 10^3/uL (134-434); RBC 4.99 M/mm3 (4.00-5.60); RDW 14.1 % (11.9-15.9); WHITE BLOOD COUNT 3.2 K/mm3 (4.0-10.0)
[2024-01-17 12:05] LABS: CHLORIDE 103 mmol/L (98-107); POTASSIUM 3.6 mmol/L (3.5-5.1); SODIUM 138 mmol/L (136-145)
[2024-01-17 12:08] LABS: ALBUMIN 3.1 g/dl (3.4-5.0); ANION GAP 6 mmol/L (4-13); BLOOD UREA NITROGEN 9.6 mg/dL (7-18); CO2 28 mmol/L (21-32); GLUCOSE,RANDOM 110 mg/dL (74-106)
[2024-01-17 12:11] LABS: CREATININE 0.8 mg/dL (0.55-1.3); SGOT/AST 33 U/L (15-37); SGPT/ALT 43 U/L (13-61)
[2024-01-17 12:13] LABS: BILIRUBIN,TOTAL 0.3 mg/dL (0.2-1); TOT PROT 6.2 g/dl (6.4-8.2)
[2024-01-17 12:14] LABS: ALK PHOS 64 U/L (45-117)
[2024-01-17] MEDS ORDERED: AMMONIUM LACTATE 12% LOTION 225 GM BOTTLE TP PRN (13:26)
[2024-01-17] MEDS: VITAMINS A AND D TOPICAL OINTMENT TP SCH (18:38)
[2024-01-17] MEDS ORDERED: traZODone HCL 50 MG TABLET (FP) ONE (21:52)
[2024-01-17] MEDS: traZODone HCL 100 MG TABLET (FP) PO SCH (22:41)
[2024-01-18] MEDS: chlordiazePOXIDE HCL 25 MG CAPSULE PO SCH (05:59)
[2024-01-18] MEDS: hydrOXYzine PAMOATE 25 MG CAPSULE (FP) PO PRN (10:44)
[2024-01-19] MEDS ORDERED: chlordiazePOXIDE HCL 10 MG CAPSULE PO PRN
[2024-01-19] MEDS: chlordiazePOXIDE HCL 10 MG CAPSULE PO SCH (06:00)
[2024-01-20] MEDS: chlordiazePOXIDE HCL 10 MG CAPSULE PO SCH (00:03)
[2024-01-21] MEDS: chlordiazePOXIDE HCL 10 MG CAPSULE PO ONE (06:15)
[2024-01-21 09:29] VITALS: BP 136/79; PULSE 90; RESP 18; TEMP 97.5
== END 2024-01-21 10:10 | disposition other institution (70) | DRG 774 ==
LOC: YASAS 13:41 → Y6N 16:19
PROVIDERS: ADMIT Surgery; ATTEND Allergy & Immunology
PROC: HZ2ZZZZ Detoxification Services for Substance Abuse Treatment (ICD-10-PCS; principal; 2024-01-16)
DX: F10.230 Alcohol dependence with withdrawal, uncomplicated (principal); F13.230 Sedative, hypnotic or anxiolytic dependence with withdrawal, uncomplicated; F14.10 Cocaine abuse, uncomplicated; F16.20 Hallucinogen dependence, uncomplicated; F12.20 Cannabis dependence, uncomplicated; F17.210 Nicotine dependence, cigarettes, uncomplicated; F19.282 Other psychoactive substance dependence with psychoactive substance-induced sleep disorder; F41.9 Anxiety disorder, unspecified; F90.9 Attention-deficit hyperactivity disorder, unspecified type; G47.00 Insomnia, unspecified; K21.9 Gastro-esophageal reflux disease without esophagitis; Z56.0 Unemployment, unspecified; Z59.00 Homelessness unspecified
CPT/HCPCS: 36415; 80053; 80307; 82140; 85027; 86780; 93005; 93010

== ENCOUNTER 2024-06-01 20:35 | Inpatient (IN) | payer OTHER ==
[2024-06-01 21:06] VITALS: BMI 36.9
[2024-06-01] MEDS ORDERED: guaiFENesin 600 MG TABLET.ER (FP) PO PRN (21:18)
[2024-06-01] MEDS ORDERED: ONDANSETRON *ODT* 4 MG TABLET SL PRN (21:18)
[2024-06-01] MEDS ORDERED: P-EPHED 60MG/TRIPROLIDI 2.5MG TABLET PO PRN (21:18)
[2024-06-01] MEDS ORDERED: BENZONATATE 200 MG CAPSULE PO PRN (21:18)
[2024-06-01] MEDS ORDERED: MAGNESIUM HYDROX 2400MG/30ML ORAL SUSPENSION 30 ML CUP PO PRN (21:18)
[2024-06-01] MEDS ORDERED: POLYETHYLENE GLYCOL (HEALTHYLAX) 3350 17 GM PACKET PO PRN (21:18)
[2024-06-01] MEDS ORDERED: BISMUTH SUBSALICYLATE 524 MG/30 ML PO PRN (21:18)
[2024-06-01] MEDS ORDERED: BENZOCAINE/MENTHOL (CHLORASEPTIC ) LOZENGE MM PRN (21:18)
[2024-06-01] MEDS ORDERED: NICOTINE POLACRILEX 2 MG GUM BUC PRN (21:18)
[2024-06-01] MEDS ORDERED: IBUPROFEN 400 MG TABLET (FP) PO PRN (21:18)
[2024-06-01] MEDS ORDERED: DICYCLOMINE HCL 10 MG CAPSULE PO PRN (21:18)
[2024-06-01] MEDS ORDERED: MAG HYDROX/AL HYDROX/SIMETH 30 ML UNIT-DOSE CUP PO PRN (21:18)
[2024-06-01] MEDS ORDERED: LOPERAMIDE HCL 2 MG CAPSULE PO PRN (21:18)
[2024-06-01] MEDS ORDERED: NALOXONE HCL 0.4 MG/ML VIAL IM PRN (21:18)
[2024-06-01] MEDS ORDERED: ACETAMINOPHEN 325 MG TABLET (FP) PO PRN (21:18)
[2024-06-01] MEDS ORDERED: NALOXONE (NARCAN) HCL 4 MG/0.1 ML SPRAY NS PRN (21:18)
[2024-06-01] MEDS ORDERED: NICOTINE POLACRILEX 2 MG LOZENGE BC PRN (21:18)
[2024-06-01] MEDS: THIAMINE 100 MG TABLET PO SCH (23:01)
[2024-06-01] MEDS: FAMOTIDINE 20 MG TABLET PO SCH (23:01)
[2024-06-01] MEDS: MELATONIN 5 MG TABLETS PO SCH (23:01)
[2024-06-01] MEDS: METHOCARBAMOL 500 MG TABLET PO PRN (23:01)
[2024-06-01] MEDS: IBUPROFEN 600 MG TABLET (FP) PO PRN (23:02)
[2024-06-02] MEDS: hydrOXYzine PAMOATE 25 MG CAPSULE (FP) PO PRN (07:24)
[2024-06-02] MEDS ORDERED: cloNIDine HCL 0.1 MG TABLET PO PRN (10:10)
[2024-06-02] MEDS: PRENATAL VITAMINS W/ FOLIC ACID TABLET (FP) PO SCH (10:47)
[2024-06-02] MEDS: methaDONE HCL 10 MG TABLET (FOR DETOX USE ONLY) PO ONE (10:48)
[2024-06-02] MEDS: diazePAM 5 MG TABLET PO SCH (10:50)
[2024-06-02 11:11] LABS: HEMATOCRIT 38.3 % (35.4-49); HEMOGLOBIN 12.6 GM/dL (11.7-16.9); MCH 27.8 pg (25.7-33.7); MCHC 32.8 g/dl (32.0-35.9); MEAN CELL VOLUME 84.6 fl (80-96); MEAN PLT VOLUME 10.7 fl (7.5-11.1); PLATELET COUNT 120 10^3/uL (134-434); RBC 4.52 M/mm3 (4.00-5.60); RDW 14.1 % (11.9-15.9); WHITE BLOOD COUNT 3.3 K/mm3 (4.0-10.0)
[2024-06-02 11:19] LABS: CHLORIDE 105 mmol/L (98-107); SODIUM 138 mmol/L (136-145)
[2024-06-02 11:23] LABS: CALCIUM 8.6 mg/dL (8.5-10.1)
[2024-06-02 11:24] LABS: ALBUMIN 3.1 g/dl (3.4-5.0); ANION GAP 4 mmol/L (4-13); BLOOD UREA NITROGEN 17.4 mg/dL (7-18); CO2 29 mmol/L (21-32); GLUCOSE,RANDOM 104 mg/dL (74-106)
[2024-06-02 11:27] LABS: CREATININE 0.8 mg/dL (0.55-1.3); SGOT/AST 57 U/L (15-37); SGPT/ALT 60 U/L (13-61)
[2024-06-02 11:28] LABS: BILIRUBIN,TOTAL 0.4 mg/dL (0.2-1); TOT PROT 5.7 g/dl (6.4-8.2)
[2024-06-02 11:29] LABS: ALK PHOS 57 U/L (45-117)
[2024-06-02] MEDS: VITAMINS A AND D TOPICAL OINTMENT TP SCH (18:15)
[2024-06-02] MEDS: traZODone HCL 100 MG TABLET (FP) PO SCH (22:12)
[2024-06-04] MEDS: diazePAM 5 MG TABLET PO SCH (05:14)
[2024-06-04] MEDS: methaDONE HCL 10 MG TABLET (FOR DETOX USE ONLY) PO ONE (10:29)
[2024-06-04] MEDS: diazePAM 5 MG TABLET PO PRN (10:29)
[2024-06-05] MEDS: diazePAM 5 MG TABLET PO SCH (05:16)
[2024-06-06] MEDS: diazePAM 5 MG TABLET PO ONE (05:18)
[2024-06-06] MEDS: methaDONE HCL 10 MG TABLET (FOR DETOX USE ONLY) PO ONE (10:29)
[2024-06-07 09:17] VITALS: BP 132/92; PULSE 69; RESP 18; TEMP 97.8
== END 2024-06-07 10:30 | disposition home or self-care (01) | DRG 773 ==
LOC: YASAS 20:35 → Y3N 22:29
PROVIDERS: ADMIT Allergy & Immunology; ATTEND Surgery
PROC: HZ2ZZZZ Detoxification Services for Substance Abuse Treatment (ICD-10-PCS; principal; 2024-06-01)
DX: F11.23 Opioid dependence with withdrawal (principal); F10.230 Alcohol dependence with withdrawal, uncomplicated; F14.20 Cocaine dependence, uncomplicated; F17.210 Nicotine dependence, cigarettes, uncomplicated; F43.10 Post-traumatic stress disorder, unspecified; G47.00 Insomnia, unspecified; K21.9 Gastro-esophageal reflux disease without esophagitis; Z91.199 Patient's noncompliance with other medical treatment and regimen due to unspecified reason
CPT/HCPCS: 36415; 80053; 80305; 80307; 85027; 93005; 93010

== ENCOUNTER 2024-07-06 12:16 | Inpatient (IN) | payer OTHER ==
[2024-07-06 12:57] VITALS: BMI 36.1
[2024-07-06] MEDS ORDERED: BENZONATATE 200 MG CAPSULE PO PRN (13:45)
[2024-07-06] MEDS ORDERED: POLYETHYLENE GLYCOL (HEALTHYLAX) 3350 17 GM PACKET PO PRN (13:45)
[2024-07-06] MEDS ORDERED: BISMUTH SUBSALICYLATE 524 MG/30 ML PO PRN (13:45)
[2024-07-06] MEDS ORDERED: BENZOCAINE/MENTHOL (CHLORASEPTIC ) LOZENGE MM PRN (13:45)
[2024-07-06] MEDS ORDERED: LOPERAMIDE HCL 2 MG CAPSULE PO PRN (13:45)
[2024-07-06] MEDS ORDERED: NICOTINE POLACRILEX 2 MG GUM BUC PRN (13:45)
[2024-07-06] MEDS ORDERED: ONDANSETRON *ODT* 4 MG TABLET SL PRN (13:45)
[2024-07-06] MEDS ORDERED: ACETAMINOPHEN 325 MG TABLET (FP) PO PRN (13:45)
[2024-07-06] MEDS ORDERED: DICYCLOMINE HCL 10 MG CAPSULE PO PRN (13:45)
[2024-07-06] MEDS ORDERED: MAGNESIUM HYDROX 2400MG/30ML ORAL SUSPENSION 30 ML CUP PO PRN (13:45)
[2024-07-06] MEDS ORDERED: hydrOXYzine PAMOATE 25 MG CAPSULE (FP) PO PRN (13:45)
[2024-07-06] MEDS ORDERED: MAG HYDROX/AL HYDROX/SIMETH 30 ML UNIT-DOSE CUP PO PRN (13:45)
[2024-07-06] MEDS ORDERED: guaiFENesin 600 MG TABLET.ER (FP) PO PRN (13:45)
[2024-07-06] MEDS ORDERED: NALOXONE HCL 0.4 MG/ML VIAL IM PRN (13:45)
[2024-07-06] MEDS ORDERED: NALOXONE (NARCAN) HCL 4 MG/0.1 ML SPRAY NS PRN (13:45)
[2024-07-06] MEDS ORDERED: IBUPROFEN 400 MG TABLET (FP) PO PRN (13:45)
[2024-07-06] MEDS ORDERED: cloNIDine HCL 0.1 MG TABLET PO PRN (13:47)
[2024-07-06] MEDS ORDERED: methaDONE HCL 10 MG TABLET (FOR DETOX USE ONLY) ONE (14:20)
[2024-07-06] MEDS: methaDONE HCL 10 MG TABLET (FOR DETOX USE ONLY) PO ONE (14:22)
[2024-07-06] MEDS: diazePAM 5 MG TABLET PO SCH (17:17)
[2024-07-06] MEDS: METHOCARBAMOL 500 MG TABLET PO PRN (17:19)
[2024-07-06] MEDS: IBUPROFEN 600 MG TABLET (FP) PO PRN (17:19)
[2024-07-06] MEDS: THIAMINE 100 MG TABLET PO SCH (22:40)
[2024-07-06] MEDS: MELATONIN 5 MG TABLETS PO SCH (22:40)
[2024-07-07] MEDS: PRENATAL VITAMINS W/ FOLIC ACID TABLET (FP) PO SCH (10:05)
[2024-07-07] MEDS: NICOTINE 14 MG/24 HOURS TOPICAL PATCH TD SCH (10:05)
[2024-07-07 13:36] LABS: HEMATOCRIT 42.6 % (35.4-49); HEMOGLOBIN 13.8 GM/dL (11.7-16.9); MCH 27.2 pg (25.7-33.7); MCHC 32.5 g/dl (32.0-35.9); MEAN CELL VOLUME 83.6 fl (80-96); MEAN PLT VOLUME 10.6 fl (7.5-11.1); PLATELET COUNT 156 10^3/uL (134-434); RDW 13.8 % (11.9-15.9); WHITE BLOOD COUNT 3.5 K/mm3 (4.0-10.0)
[2024-07-07 13:55] LABS: POTASSIUM 3.6 mmol/L (3.5-5.1)
[2024-07-07 13:57] LABS: ALBUMIN 3.4 g/dl (3.4-5.0); BLOOD UREA NITROGEN 11.2 mg/dL (7-18); CALCIUM 9.2 mg/dL (8.5-10.1)
[2024-07-07 14:00] LABS: CREATININE 0.9 mg/dL (0.55-1.3)
[2024-07-07 14:02] LABS: BILIRUBIN,TOTAL 0.2 mg/dL (0.2-1); TOT PROT 6.7 g/dl (6.4-8.2)
[2024-07-07] MEDS: traZODone HCL 100 MG TABLET (FP) PO SCH (22:18)
[2024-07-07] MEDS: BACITRACIN 0.9 GM PACKET TP PRN (22:21)
[2024-07-08] MEDS: diazePAM 5 MG TABLET PO SCH (05:34)
[2024-07-08] MEDS: methaDONE HCL 10 MG TABLET (FOR DETOX USE ONLY) PO ONE (09:26)
[2024-07-08] MEDS: diazePAM 5 MG TABLET PO PRN (17:29)
[2024-07-09] MEDS: diazePAM 5 MG TABLET PO SCH (05:36)
[2024-07-09] MEDS: FAMOTIDINE 20 MG TABLET PO SCH (17:00)
[2024-07-10] MEDS: diazePAM 5 MG TABLET PO ONE (05:26)
[2024-07-10] MEDS: methaDONE HCL 10 MG TABLET (FOR DETOX USE ONLY) PO ONE (09:25)
[2024-07-11 09:17] VITALS: BP 109/69; PULSE 78; RESP 16; TEMP 98.1
== END 2024-07-11 09:50 | disposition home or self-care (01) | DRG 773 ==
LOC: YASAS 12:16 → Y6N 14:17
PROVIDERS: ADMIT Allergy & Immunology; ATTEND Surgery
PROC: HZ2ZZZZ Detoxification Services for Substance Abuse Treatment (ICD-10-PCS; principal; 2024-07-06)
DX: F11.23 Opioid dependence with withdrawal (principal); F10.230 Alcohol dependence with withdrawal, uncomplicated; F16.20 Hallucinogen dependence, uncomplicated; F16.10 Hallucinogen abuse, uncomplicated; F12.20 Cannabis dependence, uncomplicated; F17.210 Nicotine dependence, cigarettes, uncomplicated; F32.A Depression, unspecified; K21.9 Gastro-esophageal reflux disease without esophagitis
CPT/HCPCS: 36415; 80053; 80305; 80307; 85027; 86780; 93005; 93010

== ENCOUNTER 2024-08-22 18:59 | Inpatient (IN) | payer OTHER ==
[2024-08-22 19:33] VITALS: BMI 36.9
[2024-08-22] MEDS ORDERED: IBUPROFEN 400 MG TABLET (FP) PO PRN (21:21)
[2024-08-22] MEDS ORDERED: ONDANSETRON *ODT* 4 MG TABLET SL PRN (21:21)
[2024-08-22] MEDS ORDERED: BENZOCAINE/MENTHOL (CHLORASEPTIC ) LOZENGE MM PRN (21:21)
[2024-08-22] MEDS ORDERED: LOPERAMIDE HCL 2 MG CAPSULE PO PRN (21:21)
[2024-08-22] MEDS ORDERED: POLYETHYLENE GLYCOL (HEALTHYLAX) 3350 17 GM PACKET PO PRN (21:21)
[2024-08-22] MEDS ORDERED: DICYCLOMINE HCL 10 MG CAPSULE PO PRN (21:21)
[2024-08-22] MEDS ORDERED: guaiFENesin 600 MG TABLET.ER (FP) PO PRN (21:21)
[2024-08-22] MEDS ORDERED: MAGNESIUM HYDROX 2400MG/30ML ORAL SUSPENSION 30 ML CUP PO PRN (21:21)
[2024-08-22] MEDS ORDERED: ACETAMINOPHEN 325 MG TABLET (FP) PO PRN (21:21)
[2024-08-22] MEDS ORDERED: NICOTINE POLACRILEX 2 MG GUM BUC PRN (21:21)
[2024-08-22] MEDS ORDERED: BENZONATATE 200 MG CAPSULE PO PRN (21:21)
[2024-08-22] MEDS ORDERED: NALOXONE (NARCAN) HCL 4 MG/0.1 ML SPRAY NS PRN (21:21)
[2024-08-22] MEDS ORDERED: hydrOXYzine PAMOATE 25 MG CAPSULE (FP) PO PRN (21:21)
[2024-08-22] MEDS: MAG HYDROX/AL HYDROX/SIMETH 30 ML UNIT-DOSE CUP PO ONE (22:04)
[2024-08-22] MEDS: IBUPROFEN 600 MG TABLET (FP) PO PRN (22:04)
[2024-08-22] MEDS: METHOCARBAMOL 500 MG TABLET PO PRN (22:05)
[2024-08-22] MEDS: THIAMINE 100 MG TABLET PO SCH (22:05)
[2024-08-22] MEDS: MELATONIN 5 MG TABLETS PO SCH (22:05)
[2024-08-23] MEDS: methaDONE HCL 10 MG TABLET (FOR DETOX USE ONLY) PO ONE (09:45)
[2024-08-23] MEDS: FAMOTIDINE 20 MG TABLET PO SCH (09:45)
[2024-08-23] MEDS: PRENATAL VITAMINS W/ FOLIC ACID TABLET (FP) PO SCH (09:45)
[2024-08-23] MEDS: NICOTINE 14 MG/24 HOURS TOPICAL PATCH TD SCH (10:34)
[2024-08-23] MEDS: diazePAM 5 MG TABLET PO SCH (10:36)
[2024-08-23] MEDS: MAG HYDROX/AL HYDROX/SIMETH 30 ML UNIT-DOSE CUP PO PRN (12:18)
[2024-08-23 13:15] LABS: HEMATOCRIT 43.2 % (35.4-49); HEMOGLOBIN 14.6 GM/dL (11.7-16.9); MCH 27.5 pg (25.7-33.7); MCHC 33.8 g/dl (32.0-35.9); MEAN CELL VOLUME 81.2 fl (80-96); MEAN PLT VOLUME 10.4 fl (7.5-11.1); PLATELET COUNT 103 10^3/uL (134-434); RBC 5.32 M/mm3 (4.00-5.60); RDW 14.5 % (11.9-15.9); WHITE BLOOD COUNT 3.6 K/mm3 (4.0-10.0)
[2024-08-23 13:29] LABS: CHLORIDE 99 mmol/L (98-107); POTASSIUM 3.2 mmol/L (3.5-5.1); SODIUM 136 mmol/L (136-145)
[2024-08-23 13:35] LABS: CALCIUM 9.1 mg/dL (8.5-10.1)
[2024-08-23 13:36] LABS: ALBUMIN 3.4 g/dl (3.4-5.0); ANION GAP 8 mmol/L (4-13); BLOOD UREA NITROGEN 10.4 mg/dL (7-18); CO2 29 mmol/L (21-32); GLUCOSE,RANDOM 178 mg/dL (74-106)
[2024-08-23 13:39] LABS: SGOT/AST 122 U/L (15-37); SGPT/ALT 102 U/L (13-61)
[2024-08-23 13:40] LABS: BILIRUBIN,TOTAL 0.5 mg/dL (0.2-1); TOT PROT 6.5 g/dl (6.4-8.2)
[2024-08-23 13:41] LABS: ALK PHOS 62 U/L (45-117)
[2024-08-23] MEDS: POTASSIUM CHLORIDE ORAL LIQUID 20 MEQ/15 ML PO ONE (15:15)
[2024-08-23] MEDS: BISMUTH SUBSALICYLATE 524 MG/30 ML PO PRN (15:17)
[2024-08-23] MEDS: POTASSIUM CHLORIDE ORAL LIQUID 20 MEQ/15 ML PO SCH (22:40)
[2024-08-24] MEDS: cloNIDine HCL 0.1 MG TABLET PO PRN (05:34)
[2024-08-24 12:54] LABS: POTASSIUM 4.2 mmol/L (3.5-5.1)
[2024-08-24 12:57] LABS: BLOOD UREA NITROGEN 14.4 mg/dL (7-18)
[2024-08-24 13:00] LABS: CREATININE 0.7 mg/dL (0.55-1.3)
[2024-08-24] MEDS: PANTOPRAZOLE 40 MG TABLET PO SCH (15:47)
[2024-08-24] MEDS: VITAMINS A AND D TOPICAL OINTMENT TP SCH (22:32)
[2024-08-25] MEDS: diazePAM 5 MG TABLET PO SCH (05:16)
[2024-08-25] MEDS: methaDONE HCL 10 MG TABLET (FOR DETOX USE ONLY) PO ONE (10:38)
[2024-08-25] MEDS: diazePAM 5 MG TABLET PO PRN (10:39)
[2024-08-26] MEDS: diazePAM 5 MG TABLET PO SCH (05:34)
[2024-08-27] MEDS: diazePAM 5 MG TABLET PO ONE (05:45)
[2024-08-27] MEDS: methaDONE HCL 10 MG TABLET (FOR DETOX USE ONLY) PO ONE (10:24)
[2024-08-28 09:09] VITALS: BP 136/78; PULSE 79; RESP 18; TEMP 97.5
[2024-08-28] MEDS: NALOXONE (NYS OPIOID OVERDOSE PROGRAM) 4 MG/0.1 ML SPRAY NS SCH (09:40)
== END 2024-08-28 11:08 | disposition other institution (70) | DRG 773 ==
LOC: YASAS 18:59 → Y3N 21:16
PROVIDERS: ADMIT Allergy & Immunology; ATTEND Surgery
PROC: HZ2ZZZZ Detoxification Services for Substance Abuse Treatment (ICD-10-PCS; principal; 2024-08-21)
DX: F10.230 Alcohol dependence with withdrawal, uncomplicated (principal); F13.230 Sedative, hypnotic or anxiolytic dependence with withdrawal, uncomplicated; F11.20 Opioid dependence, uncomplicated; F14.20 Cocaine dependence, uncomplicated; F17.210 Nicotine dependence, cigarettes, uncomplicated; F41.9 Anxiety disorder, unspecified; F90.9 Attention-deficit hyperactivity disorder, unspecified type; E87.6 Hypokalemia; G47.00 Insomnia, unspecified; K21.9 Gastro-esophageal reflux disease without esophagitis
CPT/HCPCS: 36415; 80048; 80053; 80305; 80307; 83036; 85027; 86780; 93005; 93010

== ENCOUNTER 2024-09-29 11:23 | Inpatient (IN) | payer OTHER ==
[2024-09-29 12:18] VITALS: BMI 34.8
[2024-09-29] MEDS ORDERED: BENZONATATE 200 MG CAPSULE PO PRN (14:33)
[2024-09-29] MEDS ORDERED: ONDANSETRON *ODT* 4 MG TABLET SL PRN (14:33)
[2024-09-29] MEDS ORDERED: NALOXONE (NARCAN) HCL 4 MG/0.1 ML SPRAY NS PRN (14:33)
[2024-09-29] MEDS ORDERED: LOPERAMIDE HCL 2 MG CAPSULE PO PRN (14:33)
[2024-09-29] MEDS ORDERED: DICYCLOMINE HCL 10 MG CAPSULE PO PRN (14:33)
[2024-09-29] MEDS ORDERED: IBUPROFEN 400 MG TABLET (FP) PO PRN (14:33)
[2024-09-29] MEDS ORDERED: MAGNESIUM HYDROX 2400MG/30ML ORAL SUSPENSION 30 ML CUP PO PRN (14:33)
[2024-09-29] MEDS ORDERED: POLYETHYLENE GLYCOL (HEALTHYLAX) 3350 17 GM PACKET PO PRN (14:33)
[2024-09-29] MEDS ORDERED: BISMUTH SUBSALICYLATE 262 MG/15 ML BTL PO PRN (14:33)
[2024-09-29] MEDS ORDERED: ACETAMINOPHEN 325 MG TABLET (FP) PO PRN (14:33)
[2024-09-29] MEDS ORDERED: methaDONE HCL 10 MG TABLET (FOR DETOX USE ONLY) ONE (15:46)
[2024-09-29] MEDS: methaDONE HCL 10 MG TABLET PO ONE (15:50)
[2024-09-29] MEDS ORDERED: methaDONE HCL 10 MG TABLET PO PRN (16:34)
[2024-09-29] MEDS: cloNIDine HCL 0.1 MG TABLET PO SCH (17:40)
[2024-09-29] MEDS: MELATONIN 5 MG TABLETS PO SCH (22:12)
[2024-09-29] MEDS: THIAMINE 100 MG TABLET PO SCH (22:12)
[2024-09-29] MEDS: diazePAM 5 MG TABLET PO PRN (22:12)
[2024-09-30] MEDS: MAG HYDROX/AL HYDROX/SIMETH 30 ML UNIT-DOSE CUP PO PRN (00:03)
[2024-09-30 09:01] LABS: HEMATOCRIT 37.6 % (35.4-49); HEMOGLOBIN 12.7 GM/dL (11.7-16.9); MCH 27.4 pg (25.7-33.7); MCHC 33.7 g/dl (32.0-35.9); MEAN CELL VOLUME 81.4 fl (80-96); MEAN PLT VOLUME 9.8 fl (7.5-11.1); PLATELET COUNT 116 10^3/uL (134-434); RBC 4.62 M/mm3 (4.00-5.60); RDW 15.1 % (11.9-15.9); WHITE BLOOD COUNT 3.8 K/mm3 (4.0-10.0)
[2024-09-30 09:39] LABS: CALCIUM 8.4 mg/dL (8.5-10.1)
[2024-09-30 09:40] LABS: ALBUMIN 2.8 g/dl (3.4-5.0)
[2024-09-30 09:43] LABS: CREATININE 0.7 mg/dL (0.55-1.3)
[2024-09-30 09:44] LABS: BILIRUBIN,TOTAL 0.2 mg/dL (0.2-1); TOT PROT 5.3 g/dl (6.4-8.2)
[2024-09-30] MEDS: methaDONE 40 MG, methaDONE 10 MG PO ONE (09:48)
[2024-09-30] MEDS: METHOCARBAMOL 500 MG TABLET PO PRN (09:49)
[2024-09-30] MEDS: PRENATAL VITAMINS W/ FOLIC ACID TABLET (FP) PO SCH (09:50)
[2024-09-30] MEDS: traZODone HCL 100 MG TABLET (FP) PO SCH (21:40)
[2024-10-01] MEDS ORDERED: cloNIDine HCL 0.1 MG TABLET PO PRN
[2024-10-01] MEDS: hydrOXYzine PAMOATE 25 MG CAPSULE (FP) PO PRN (10:20)
[2024-10-01] MEDS: FAMOTIDINE 20 MG TABLET PO SCH (10:20)
[2024-10-01] MEDS: methaDONE 40 MG, methaDONE 20 MG PO ONE (10:20)
[2024-10-01] MEDS: guaiFENesin 600 MG TABLET.ER (FP) PO PRN (11:46)
[2024-10-02] MEDS: BENZOCAINE/MENTHOL (CHLORASEPTIC ) LOZENGE MM PRN (03:08)
[2024-10-02] MEDS: IBUPROFEN 600 MG TABLET (FP) PO PRN (06:01)
[2024-10-02] MEDS: methaDONE 40 MG, methaDONE 30 MG PO ONE (09:38)
[2024-10-02] MEDS: guaiFENesin 600 MG TABLET.ER (FP) PO SCH (13:33)
[2024-10-03] MEDS: P-EPHED 60MG/TRIPROLIDI 2.5MG TABLET PO PRN (06:49)
[2024-10-03] MEDS: methaDONE HCL 40 MG DISPERSABLE TABLET PO ONE (10:53)
[2024-10-03] MEDS: NALOXONE (NYS OPIOID OVERDOSE PROGRAM) 4 MG/0.1 ML SPRAY NS SCH (15:37)
[2024-10-04 09:11] VITALS: RESP 18
[2024-10-04] MEDS: methaDONE 80 MG, methaDONE 10 MG PO ONE (09:11)
[2024-10-04 12:57] VITALS: BP 135/82; PULSE 69; TEMP 97.7
== END 2024-10-04 13:23 | disposition other institution (70) | DRG 773 ==
LOC: YASAS 11:23 → Y6N 15:56
PROVIDERS: ADMIT Allergy & Immunology; ATTEND Surgery
PROC: HZ2ZZZZ Detoxification Services for Substance Abuse Treatment (ICD-10-PCS; principal; 2024-09-29)
DX: F11.23 Opioid dependence with withdrawal (principal); F10.20 Alcohol dependence, uncomplicated; F14.20 Cocaine dependence, uncomplicated; F16.10 Hallucinogen abuse, uncomplicated; F12.20 Cannabis dependence, uncomplicated; F13.20 Sedative, hypnotic or anxiolytic dependence, uncomplicated; F17.210 Nicotine dependence, cigarettes, uncomplicated; F19.282 Other psychoactive substance dependence with psychoactive substance-induced sleep disorder; F32.A Depression, unspecified; F41.9 Anxiety disorder, unspecified; F43.10 Post-traumatic stress disorder, unspecified; K21.9 Gastro-esophageal reflux disease without esophagitis
CPT/HCPCS: 0241U-QW; 36415; 80053; 80307; 85027; 86780

== ENCOUNTER 2024-10-04 13:32 | Inpatient (IN) | payer OTHER ==
[2024-10-04] MEDS ORDERED: LOPERAMIDE HCL 2 MG CAPSULE PO PRN (13:50)
[2024-10-04] MEDS ORDERED: NALOXONE (NARCAN) HCL 4 MG/0.1 ML SPRAY NS PRN (13:50)
[2024-10-04] MEDS ORDERED: BENZONATATE 200 MG CAPSULE PO PRN (13:50)
[2024-10-04] MEDS ORDERED: NICOTINE POLACRILEX 2 MG LOZENGE BC PRN (13:50)
[2024-10-04] MEDS ORDERED: NICOTINE POLACRILEX 2 MG GUM BUC PRN (13:50)
[2024-10-04] MEDS ORDERED: ACETAMINOPHEN 325 MG TABLET (FP) PO PRN (13:50)
[2024-10-04] MEDS: MAG HYDROX/AL HYDROX/SIMETH 30 ML UNIT-DOSE CUP PO PRN (17:55)
[2024-10-04] MEDS: guaiFENesin 600 MG TABLET.ER (FP) PO PRN (20:03)
[2024-10-04] MEDS: MELATONIN 5 MG TABLETS PO SCH (21:33)
[2024-10-04] MEDS: hydrOXYzine PAMOATE 25 MG CAPSULE (FP) PO PRN (21:34)
[2024-10-04] MEDS: traZODone HCL 100 MG TABLET (FP) PO SCH (21:34)
[2024-10-04] MEDS: THIAMINE 100 MG TABLET PO SCH (21:35)
[2024-10-05] MEDS: methaDONE 80 MG, methaDONE 10 MG PO SCH (05:43)
[2024-10-05] MEDS ORDERED: methaDONE HCL 10 MG TABLET PO SCH (06:00)
[2024-10-05] MEDS: FAMOTIDINE 20 MG TABLET PO SCH (06:03)
[2024-10-05] MEDS: PRENATAL VITAMINS W/ FOLIC ACID TABLET (FP) PO SCH (11:26)
[2024-10-05] MEDS: ONDANSETRON *ODT* 4 MG TABLET SL PRN (12:36)
[2024-10-05 17:39] LABS: URINE APPEARANCE CLEAR; URINE BILIRUBIN NEGATIVE (NEGATIVE); URINE COLOR YELLOW; URINE GLUCOSE (UA) NEGATIVE (NEGATIVE); URINE KETONE TRACE (NEGATIVE); URINE LEUK ESTERASE NEGATIVE (NEGATIVE); URINE NITRITE NEGATIVE (NEGATIVE); URINE PROTEIN NEGATIVE (NEGATIVE); URINE UROBILINOGEN 0.2 mg/dL (0.2-1.0)
[2024-10-05] MEDS: BACLOFEN 10 MG TABLET (FP) PO SCH (21:28)
[2024-10-06] MEDS: RIFAXIMIN 550 MG TABLET PO SCH (10:36)
[2024-10-06] MEDS: OXYMETAZOLINE 0.05% NASAL SOLUTION 15 ML BOTTLE NS PRN (11:40)
[2024-10-08] MEDS: BENZONATATE 200 MG CAPSULE PO PRN (04:23)
[2024-10-08] MEDS: IBUPROFEN 400 MG TABLET (FP) PO PRN (04:25)
[2024-10-08] MEDS: MAGNESIUM HYDROX 2400MG/30ML ORAL SUSPENSION 30 ML CUP PO PRN (16:30)
[2024-10-08] MEDS: BENZOCAINE/MENTHOL (CHLORASEPTIC ) LOZENGE MM PRN (16:31)
[2024-10-09] MEDS: guaiFENesin 600 MG TABLET.ER (FP) PO PRN (14:21)
[2024-10-10] MEDS: hydrOXYzine PAMOATE 50 MG CAPSULE (FP) PO PRN (16:37)
[2024-10-12] MEDS: BISMUTH SUBSALICYLATE 524 MG/30 ML PO PRN (02:30)
[2024-10-12] MEDS: IBUPROFEN 600 MG TABLET (FP) PO PRN (19:01)
[2024-10-12] MEDS: FAMOTIDINE 20 MG TABLET PO SCH (21:40)
[2024-10-15] MEDS: POLYETHYLENE GLYCOL (HEALTHYLAX) 3350 17 GM PACKET PO PRN (09:40)
[2024-10-16] MEDS: guaiFENesin 600 MG TABLET.ER (FP) PO SCH (15:31)
[2024-10-16] MEDS: SODIUM PHOSPHATE/NA BIPHOS 133 ML ENEMA RC ONE (15:31)
[2024-10-19] MEDS: DOCUSATE SODIUM 100 MG CAPSULE (FP) PO PRN (10:08)
[2024-10-19] MEDS: BISACODYL 10 MG SUPP.RECT PR PRN (13:52)
[2024-10-25 06:26] VITALS: PULSE 66
[2024-10-25] MEDS ORDERED: guaiFENesin 600 MG TABLET.ER (FP) PO PRN (14:58)
[2024-10-26 06:29] VITALS: BP 101/67; RESP 18; TEMP 98.2
[2024-10-26] MEDS: NALOXONE (NYS OPIOID OVERDOSE PROGRAM) 4 MG/0.1 ML SPRAY NS SCH (09:14)
== END 2024-10-26 09:23 | disposition home or self-care (01) | DRG 772 ==
LOC: YASAS 13:32 → Y3NR 13:33 → Y3W 10-05 11:13
PROVIDERS: ADMIT Psychiatry & Neurology Pain Medicine; ATTEND Family Medicine Addiction Medicine
PROC: HZ42ZZZ Group Counseling for Substance Abuse Treatment, Cognitive-Behavioral (ICD-10-PCS; principal; 2024-10-04)
DX: F11.20 Opioid dependence, uncomplicated (principal); F14.20 Cocaine dependence, uncomplicated; F10.20 Alcohol dependence, uncomplicated; F13.20 Sedative, hypnotic or anxiolytic dependence, uncomplicated; F17.210 Nicotine dependence, cigarettes, uncomplicated; F19.282 Other psychoactive substance dependence with psychoactive substance-induced sleep disorder; F41.9 Anxiety disorder, unspecified; F43.10 Post-traumatic stress disorder, unspecified; K21.9 Gastro-esophageal reflux disease without esophagitis; J06.9 Acute upper respiratory infection, unspecified; J41.0 Simple chronic bronchitis; Z59.00 Homelessness unspecified
CPT/HCPCS: 0241U-QW; 81003; J0475; Q0162

== ENCOUNTER 2025-02-21 10:42 | Inpatient (IN) | payer OTHER ==
[2025-02-21 11:50] VITALS: BMI 36.3
[2025-02-21] MEDS ORDERED: MAG HYDROX/AL HYDROX/SIMETH 30 ML UNIT-DOSE CUP PO PRN (12:19)
[2025-02-21] MEDS ORDERED: DICYCLOMINE HCL 10 MG CAPSULE PO PRN (12:19)
[2025-02-21] MEDS ORDERED: guaiFENesin 600 MG TABLET.ER (FP) PO PRN (12:19)
[2025-02-21] MEDS ORDERED: BENZOCAINE/MENTHOL (CHLORASEPTIC ) LOZENGE MM PRN (12:19)
[2025-02-21] MEDS ORDERED: LOPERAMIDE HCL 2 MG CAPSULE PO PRN (12:19)
[2025-02-21] MEDS ORDERED: NALOXONE (NARCAN) HCL 4 MG/0.1 ML SPRAY NS PRN (12:19)
[2025-02-21] MEDS ORDERED: ACETAMINOPHEN 325 MG TABLET (FP) PO PRN (12:19)
[2025-02-21] MEDS ORDERED: MAGNESIUM HYDROX 2400MG/30ML ORAL SUSPENSION 30 ML CUP PO PRN (12:19)
[2025-02-21] MEDS ORDERED: POLYETHYLENE GLYCOL (HEALTHYLAX) 3350 17 GM PACKET PO PRN (12:19)
[2025-02-21] MEDS ORDERED: BISMUTH SUBSALICYLATE 524 MG/30 ML PO PRN (12:19)
[2025-02-21] MEDS ORDERED: BENZONATATE 200 MG CAPSULE PO PRN (12:19)
[2025-02-21] MEDS ORDERED: IBUPROFEN 400 MG TABLET (FP) PO PRN (12:19)
[2025-02-21] MEDS: hydrOXYzine PAMOATE 25 MG CAPSULE (FP) PO PRN (20:13)
[2025-02-21] MEDS: ONDANSETRON *ODT* 4 MG TABLET SL PRN (20:13)
[2025-02-21] MEDS: METHOCARBAMOL 500 MG TABLET PO PRN (20:13)
[2025-02-21] MEDS: THIAMINE 100 MG TABLET PO SCH (22:45)
[2025-02-21] MEDS: MELATONIN 5 MG TABLETS PO SCH (22:45)
[2025-02-21] MEDS: IBUPROFEN 600 MG TABLET (FP) PO PRN (22:47)
[2025-02-22 06:18] VITALS: PULSE 60
[2025-02-22] MEDS: PRENATAL VITAMINS W/ FOLIC ACID TABLET (FP) PO SCH (09:31)
[2025-02-22 09:51] VITALS: BP 114/63; RESP 18; TEMP 97.6
[2025-02-22 11:19] LABS: HEMATOCRIT 42.7 % (40.1-51.0); HEMOGLOBIN 13.9 g/dL (13.7-17.5); MCHC 32.6 g/dl (32.3-36.5); MEAN CELL VOLUME 83.9 fl (79.0-92.2); MEAN PLT VOLUME 12.9 fl (9.4-12.4); PLATELET COUNT 169 x10^3/uL (163-337); RDW 14.2 % (12.1-15.9)
[2025-02-22 14:37] LABS: POTASSIUM 3.6 mmol/L (3.5-5.1)
[2025-02-22 14:39] LABS: CALCIUM 9.6 mg/dL (8.5-10.1)
[2025-02-22 14:40] LABS: ALBUMIN 3.8 g/dl (3.4-5.0)
[2025-02-22 14:44] LABS: BILIRUBIN,TOTAL 0.3 mg/dL (0.2-1)
[2025-02-22 14:45] LABS: TOT PROT 6.8 g/dl (6.4-8.2)
[2025-02-22 14:49] LABS: CREATININE 0.9 mg/dL (0.55-1.3)
== END 2025-02-22 10:05 | disposition home or self-care (01) | DRG 773 ==
LOC: YASAS 10:42 → Y3N 12:52
PROVIDERS: ADMIT Allergy & Immunology; ATTEND Allergy & Immunology
PROC: HZ2ZZZZ Detoxification Services for Substance Abuse Treatment (ICD-10-PCS; principal; 2025-02-21)
DX: F11.20 Opioid dependence, uncomplicated (principal); F10.20 Alcohol dependence, uncomplicated; F14.20 Cocaine dependence, uncomplicated; F13.20 Sedative, hypnotic or anxiolytic dependence, uncomplicated; F12.20 Cannabis dependence, uncomplicated; F17.210 Nicotine dependence, cigarettes, uncomplicated; F43.10 Post-traumatic stress disorder, unspecified; F41.9 Anxiety disorder, unspecified; Z86.59 Personal history of other mental and behavioral disorders; Z59.02 Unsheltered homelessness
CPT/HCPCS: 36415; 80053; 80305; 80307; 85027; 86780; 93005; 93010; Q0162